=== PATIENT | male | born 1935 | race African-American/Black ===

== ENCOUNTER 2018-08-01 05:31 | Inpatient (IN) | payer MEDICARE, OTHER ==
[2018-07-25 16:14] LABS: BASOPHILS % (AUTO) 0.9 % (0-1); EOSINOPHILS # (AUTO) 0.1 X10'3 (0-0.9); EOSINOPHILS % (AUTO) 2.1 % (0-6); LYMPHOCYTES # (AUTO) 1.2 X10'3 (1.1-4.8); LYMPHOCYTES % (AUTO) 34.3 % (21-51); MEAN CORPUSCULAR HEMOGLOBIN 29.4 PG (27.0-31.0); MEAN CORPUSCULAR VOLUME 89.3 FL (78-98); MEAN PLATELET VOLUME 9.4 FL (7.4-10.4); MONOCYTES # (AUTO) 0.4 X10'3 (0-0.9); MONOCYTES % (AUTO) 11.4 % (2-12); NEUTROPHILS # (AUTO) 1.8 X10'3 (1.8-7.7); NEUTROPHILS % (AUTO) 51.3 % (42-75); PRE OP HEMATOCRIT 40.8 % (42.0-52.0); PRE OP HEMOGLOBIN 13.4 g/dL (14.0-17.9); PRE OP PLATELET COUNT 254 X10'3 (140-440); RED BLOOD COUNT 4.57 X10'6 (4.70-6.10); RED CELL DISTRIBUTION WIDTH 13.8 % (11.5-14.5)
[2018-07-25 16:22] LABS: CLARITY,URINE CLEAR (Clear); COLOR,URINE YELLOW (Yellow); GLUCOSE, URINE NEGATIVE (Neg); KETONES,URINE NEGATIVE (Neg); LEUKOCYTE ESTERASE ,URINE NEGATIVE (Neg); NITRITES, URINE NEGATIVE (Neg); OCCULT BLOOD,URINE NEGATIVE (Neg); PH,URINE 6.5 (4.8-8.0); PROTEIN,URINE NEGATIVE (Neg); UROBILINOGEN,URINE 0.2 E.U/dL (0.2-1.0)
[2018-07-25 16:28] LABS: ALBUMIN 3.7 G/DL (3.4-5.0); ALBUMIN/GLOBULIN RATIO 0.9 (1.1-1.5); ALKALINE PHOSPHATASE 72 IU/L (46-116); BLOOD UREA NITROGEN 15 MG/DL (7-18); BUN/CREATININE RATIO 17.6 (5.4-32.0); CALCIUM 8.9 MG/DL (8.5-10.1); CHLORIDE 103 MMOL/L (99-107); CREATININE 0.85 MG/DL (0.60-1.10); PRE OP ALT 30 U/L (30-65); PRE OP ANION GAP 5 (8-16); PRE OP AST 19 U/L (10-37); PRE OP BILIRUB, TOTAL 0.3 MG/DL (0.0-1.0); PRE OP GLUCOSE 90 MG/DL (70-104); PRE OP POTASSIUM 4.3 MMOL/L (3.4-5.1); PRE OP SODIUM 138 MMOL/L (135-145); TOTAL CARBON DIOXIDE 30.2 MMOL/L (24-32); TOTAL PROTEIN 7.6 G/DL (6.4-8.2); eGFR > 90 ML/MIN
[2018-07-25 16:29] LABS: UA COLLECTION TYPE NON-SPECIFIED
[2018-08-01] VITALS (28 sets, daily range): BP systolic 83–134; BP diastolic 51–82
[~2018-08-01] VITALS: Ht 182.9 cm; Wt 70.0 kg
[~2018-08-01 05:31] MED LIST: ASPI-1265 PO; IBUP-1984 PO; LISI40TA4 PO; MULT-1172 PO; OMEP40CA37 PO; acetaminophen 325mg tablet PO ONE; cefazolin/dext.iso 2gm/100 ML IV ONE; celeCOXIB 100mg capsule PO ONE; famotidine 20mg tablet PO ONE; gabapentin 300mg capsule PO ONE; metoclopramide 5 mg/ml inj IV ONE; ringers solution, lacted 1,000 ML IV SCH; tranexamic acid inj. 1,000 MG in normal saline 100ml IV soln 90 ML IV ONE; vancomycin inj 1,500 MG in normal saline 300ml IV soln IV ONE
[2018-08-01] MEDS ORDERED: ondansetron/PF 4mg/2ml inj IV PRN ×3 (06:55→09:30)
[2018-08-01] MEDS ORDERED: diphenhydrAMINE 25mg capsule PO PRN ×2 (06:55)
[2018-08-01] MEDS ORDERED: magnesium hydroxide 30ml (MOM) UD suspension PO PRN (06:55)
[2018-08-01] MEDS ORDERED: HYDROcodone/acetaminophen 10/325mg tab PO PRN ×2 (06:55)
[2018-08-01] MEDS ORDERED: HYDROmorphone 1 mg/ml syringe IV PRN ×2 (06:55)
[2018-08-01] MEDS ORDERED: bisacodyl 10mg suppository rectal RC PRN (06:55)
[2018-08-01] MEDS ORDERED: ROPIVAcaine inj 250 MG, epiNEPHrine inj 0.5 MG, CloNIDine/PF inj 80 MCG in normal salin... SQ ONE (07:15)
[2018-08-01] MEDS ORDERED: ketorolac trometh. 30mg/ml inj. ONE (07:15)
[2018-08-01] MEDS ORDERED: vancomycin 1,000mg inj ONE (07:15)
[2018-08-01] MEDS ORDERED: vancomycin/NS 1 GM ADD-VANTAGE 250 ML IV SCH (08:00)
[2018-08-01] MEDS ORDERED: non-formulary drug (Lisinopril* 10 MG) PO SCH (08:00)
[2018-08-01] MEDS ORDERED: non-formulary drug (Omeprazole (Prilosec) 1 CAP) PO SCH (08:00)
[2018-08-01] MEDS ORDERED: MIDAZolam 1mg/ml 10ml vial ONE (08:41)
[2018-08-01] MEDS ORDERED: morphine /PF 1mg/ml 10ml inj. ONE (08:41)
[2018-08-01] MEDS ORDERED: fentaNYL/PF 50MCG/1 ML 2ML syringe ONE (08:41)
[2018-08-01] MEDS ORDERED: BUPIVAcaine/dex-water/PF 7.5 mg/ml 2ml ampul ONE (08:44)
[2018-08-01] MEDS ORDERED: ROPIVAcaine 0.5% (5mg/ml) 30ml vial ONE ×2 (09:13→10:22)
[2018-08-01] MEDS ORDERED: epiNEPHrine 1 mg/ml inj ONE (09:13)
[2018-08-01] MEDS ORDERED: cloNIDine hcl/PF 100mcg/ml inj ONE (09:13)
[2018-08-01] MEDS ORDERED: ringers solution, lacted 1,000 ML IV SCH (09:28)
[2018-08-01] MEDS ORDERED: naloxone 2mg/2ml inj 1.5 MG in normal saline 500ml IV soln 500 ML IV PRN (09:29)
[2018-08-01] MEDS ORDERED: diphenhydrAMINE 50 mg/ml inj IV PRN (09:30)
[2018-08-01] MEDS ORDERED: morphine 4 MG/ML inj SYRINge IV PRN ×2 (09:30)
[2018-08-01] MEDS ORDERED: proCHLORperazine 10 MG/2 ml inj IV PRN (09:30)
[2018-08-01] MEDS ORDERED: meperidine/PF 25mg/ml syringe IV PRN ×3 (09:30)
[2018-08-01] MEDS ORDERED: dexamethasone sod phosphate 4mg/ml inj. ONE (10:56)
[2018-08-01] MEDS: aspirin 325mg tablet PO SCH (14:59)
[2018-08-01] MEDS: multivitamins, therapeutics tablet PO SCH (14:59)
[2018-08-01] MEDS: ascorbic acid 500mg tablet PO SCH ×2 (14:59→20:38)
[2018-08-01] MEDS: gabapentin 300mg capsule PO SCH ×2 (15:00→20:38)
[2018-08-01] MEDS: ceFAZolin 1GM/D5W- ADD-VANTAGE 50 ML IV SCH ×2 (15:01→16:12)
[2018-08-01] MEDS: potassium cl 20mEq in 1/2 NS 1,000 ML IV SCH ×2 (15:01→16:11)
[2018-08-01] MEDS: acetaminophen 325mg tablet PO PRN (20:42)
[2018-08-01] MEDS ORDERED: sennosides 8.6mg tablet PO SCH (21:00)
[2018-08-01] MEDS ORDERED: vancomycin/NS 1 GM ADD-VANTAGE 250 ML X 1 DOSE IV ONE (21:00)
[2018-08-01] MEDS ORDERED: ceFAZolin 1GM/D5W- ADD-VANTAGE 50 ML IV ONE (23:59)
[2018-08-02 02:00] VITALS: BP 104/58
[2018-08-02] MEDS: potassium cl 20mEq in 1/2 NS 1,000 ML IV SCH ×2 (02:22→08:49)
[2018-08-02] MEDS: acetaminophen 325mg tablet PO PRN ×2 (04:16→10:30)
[2018-08-02 06:00] VITALS: BP 104/62
[2018-08-02 06:59] LABS: BASOPHILS % (AUTO) 0.3 % (0-1); EOSINOPHILS % (AUTO) 0.4 % (0-6); HEMATOCRIT 34.2 % (42.0-52.0); HEMOGLOBIN 11.1 g/dl (14.0-17.9); LYMPHOCYTES # (AUTO) 1.1 X10'3 (1.1-4.8); LYMPHOCYTES % (AUTO) 14.8 % (21-51); MEAN CORPUSCULAR HEMOGLOBIN 29.3 PG (27.0-31.0); MEAN CORPUSCULAR HGB CONC 32.4 % (33.0-36.5); MEAN CORPUSCULAR VOLUME 90.3 FL (78-98); MEAN PLATELET VOLUME 9.3 FL (7.4-10.4); MONOCYTES # (AUTO) 0.7 X10'3 (0-0.9); NEUTROPHILS # (AUTO) 5.4 X10'3 (1.8-7.7); NEUTROPHILS % (AUTO) 74.5 % (42-75); PLATELET COUNT 202 X10'3 (140-440); RED BLOOD COUNT 3.79 X10'6 (4.70-6.10); RED CELL DISTRIBUTION WIDTH 13.5 % (11.5-14.5); WHITE BLOOD COUNT 7.3 X10'3 (4.5-11.0)
[2018-08-02 07:07] LABS: ANION GAP 4 (8-16); CHLORIDE 103 MMOL/L (99-107); SODIUM 134 MMOL/L (135-145); TOTAL CARBON DIOXIDE 27.1 MMOL/L (24-32)
[2018-08-02] MEDS ORDERED: pantoprazole 40mg Tablet.DR PO SCH (07:30)
[2018-08-02] MEDS ORDERED: lisinopril 10 MG tablet PO SCH (08:00)
[2018-08-02] MEDS: gabapentin 300mg capsule PO SCH ×2 (08:41→12:50)
[2018-08-02] MEDS: ascorbic acid 500mg tablet PO SCH (08:42)
[2018-08-02] MEDS: multivitamins, therapeutics tablet PO SCH (08:42)
[2018-08-02] MEDS: aspirin 325mg tablet PO SCH (08:46)
[2018-08-02 10:13] VITALS: BP 101/82
[2018-08-02] MEDS ORDERED: acetaminophen 325mg tablet PO PRN (11:35)
[2018-08-02] MEDS ORDERED: ASPI-1 PO (14:00)
[2018-08-02] MEDS ORDERED: celeCOXIB 100mg capsule PO SCH (20:00)
== END 2018-08-02 16:45 | disposition home or self-care (01) | DRG 470 ==
LOC: PAS IN 05:31 → EDSTATUS 09:30 → ORTHO 4S 13:25
PROVIDERS: ADMIT Orthopaedic Surgery; ATTEND Orthopaedic Surgery
PROC: 3E0T3BZ Introduction of Anesthetic Agent into Peripheral Nerves and Plexi, Percutaneous Approach (ICD-10-PCS; 2018-08-01)
PROC: 8E0Y0CZ Robotic Assisted Procedure of Lower Extremity, Open Approach (ICD-10-PCS; 2018-08-01)
PROC: 0SRD0J9 Replacement of Left Knee Joint with Synthetic Substitute, Cemented, Open Approach (ICD-10-PCS; principal; 2018-08-01 08:33)
DX: M17.0 Bilateral primary osteoarthritis of knee (principal); D62 Acute posthemorrhagic anemia; I10 Essential (primary) hypertension; M21.062 Valgus deformity, not elsewhere classified, left knee; M25.762 Osteophyte, left knee; K21.9 Gastro-esophageal reflux disease without esophagitis; Z79.899 Other long term (current) drug therapy
CPT/HCPCS: 36415; 71046; 73560; 80051; 80053; 81003; 85025; 86885; 86900; 86901; 87070; 93005; 97116; 97161; 97530; A6449; A6455; A7000; C1713; C1758; C1776; G0378; J0171; J0690; J0735; J1100; J1885; J2250; J2274; J2765; J2795; J3010; J3370; J3490; J7030; J7120